=== PATIENT | male | born 1985 | race Caucasian/White ===

== ENCOUNTER 2018-04-28 08:07 | Emergency (ER) | payer BC ==
[~2018-04-28] VITALS: Ht 172.7 cm; Wt 77.0 kg
[2018-04-28] MEDS ORDERED: ONDANSETRON HCL 4MG TABLET PO ONE (09:15)
[2018-04-28] MEDS ORDERED: IBUPROFEN 600MG TABLET PO ONE (09:15)
[2018-04-28 11:02] VITALS: BP 144/92
== END 2018-04-28 11:03 | disposition home or self-care (01) ==
LOC: ER 08:07
DX: S16.1XXA Strain of muscle, fascia and tendon at neck level, initial encounter (principal); S00.83XA Contusion of other part of head, initial encounter; R22.1 Localized swelling, mass and lump, neck; R03.0 Elevated blood-pressure reading, without diagnosis of hypertension; V49.49XA Driver injured in collision with other motor vehicles in traffic accident, initial encounter; Y93.89 Activity, other specified; Y92.410 Unspecified street and highway as the place of occurrence of the external cause
CPT/HCPCS: 72040; 99283; Q0162